=== PATIENT | male | born 1985 | race Caucasian/White ===

== ENCOUNTER 2017-07-19 21:48 | Emergency (ER) ==
[2017-07-19 21:50] VITALS: BP 138/82; TEMP 98; BMI 34.9
--- NOTE | 2017-07-19 22:23 | DI ---
EXAM: right ankle, three views, 07/19/2017 HISTORY: Ankle injury COMPARISON: None. FINDINGS / IMPRESSION: The visualized osseous structures appear intact. Anatomic alignment appears within normal limits. There is no evidence of fracture or dislocation. No acute osseous abnormality.
--- NOTE | 2017-07-19 22:23 | DI ---
EXAM: Right foot, three views, 07/19/2017 HISTORY: Foot injury COMPARISON: None. FINDINGS / IMPRESSION: The visualized osseous structures appear intact. Anatomic alignment appears within normal limits. There is no evidence of fracture or dislocation. No acute osseous abnormality.
[2017-07-19] MEDS ORDERED: TORADOL IM STA (22:37)
--- NOTE | 2017-07-19 22:41 | ED.PDOC ---
General ED Provider: Dr. PERFECTO PEREIRA-ER Chief Complaint: Ankle Pain/Injury Stated Complaint: i slipped on step=--i hurt my ankle Time Seen by Physician: 22:39 Mode of Arrival: Walk-In Information Source: Patient Exam Limitations: No limitations Nursing and Triage Documentation Reviewed and Agree: Yes Reviewed sepsis parameters & appropriate labs ordered?: Yes System Inflammatory Response Syndrome: Not Applicable Sepsis Protocol: For patient's 13 years and over: Temp is 96.8 and below OR 101 and greater Pulse >90 BPM Resp >20/minute Acutely Altered Mental Status Are patient's symptoms suggestive of a new infection, such as: -Pneumonia -Skin, Soft Tissue -Endocarditis -UTI -Bone, Joint Infection -Implantable Device -Acute Abdominal Infection -Wound Infection -Meningitis -Blood Stream Catheter Infection -Unknown Musculoskeletal Complaint Exam - Ankle/Foot Complaint/Exam Location of Injury: Reports: Right, Ankle Mechanism of Injury: Reports: Trauma Onset/Duration: one hour Symptoms Are: Reports: Still present Onset of Pain: Reports: Immediate Initial Severity: Mild Current Severity: Mild Location: Reports: Discrete (right ankle) Character: Reports: Dull, Aching Aggravating: Reports: Movement Able to Bear Weight: No Associated Signs and Symptoms: Reports: Swelling Related Surgical History: Reports: None Lower Extremity Findings: Present: Swelling Achilles Tendon Abnormality: No Tenderness: Present: Medial malleolus, Lateral malleolus Limited Range of Motion: Present: Inversion, Eversion Differential Diagnosis: Sprain Review of Systems - Review Of Systems Constitutional: Reports: No symptoms Eyes: Reports: No symptoms Ears, Nose, Mouth, Throat: Reports: No symptoms Respiratory: Reports: No symptoms Cardiac: Reports: No symptoms GI: Reports: No symptoms : Reports: No symptoms Musculoskeletal: Reports: Joint pain Skin: Reports: No symptoms Neurological: Reports: No symptoms Endocrine: Reports: No symptoms Hematologic/Lymphatic: Reports: No symptoms All Other Systems: Reviewed and Negative Past Medical History - Past Medical History Previously Healthy: Yes Endocrine: Reports: Unknown Cardiovascular: Reports: Unknown Respiratory: Reports: Unknown Hematological: Reports: Unknown Gastrointestinal: Reports: Unknown Genitourinary: Reports: Unknown Neuro/Psych: Reports: Unknown Musculoskeletal: Reports: Unknown Cancer: Reports: Unknown - Surgical History General Surgical History: Reports: Unknown - Family History Family History: Reports: Unknown - Social History Smoking Status: Current every day smoker, Heavy tobacco smoker Hx Substance Use: No Alcohol Screening: Occasionally - Immunizations Tetanus Shot up to Date: Yes Physical Exam - Physical Exam Appearance: Well-appearing, No pain distress, Well-nourished Pain Distress: Moderate Eyes: BRIAN, EOMI, Conjunctiva clear ENT: Ears normal, Nose normal, Oropharynx normal Neck: Supple Respiratory: Airway patent, Breath sounds clear, Breath sounds equal, Respirations nonlabored Cardiovascular: RRR, Pulses normal, No rub, No murmur GI/: Soft Musculoskeletal: Limited ROM Skin: Warm Neurological: Sensation intact, Motor intact, Reflexes intact, Cranial nerves intact, Alert, Oriented Psychiatric: Affect appropriate, Mood appropriate Interpretation - Radiology Interpretation Radiology Interpretation By: Radiologist Radiology Results: Negative Critical Care Note - Critical Care Note Total Time (mins): 0 Course - Course Orders, Labs, Meds: Orders Category Date Time Status CRUTCHES [ED CRUTCHES] .ONCE EMERGENCY 07/19/17 22:38 Active ED ALEX WRAP .ONCE EMERGENCY 07/19/17 22:38 Active ED SPLINT APPLICATION .ONCE EMERGENCY 07/19/17 22:38 Active Ketorolac Tromethamine [Toradol] MEDS 07/19/17 22:37 Stat 60 mg IM ONCE STA ANKLE, RIGHT MIN 3 VIEWS Stat RADS 07/19/17 22:00 Completed FOOT, RIGHT 3 VIEWS Stat RADS 07/19/17 22:02 Completed Vital Signs: Temp Pulse Resp BP Pulse Ox 07/19/17 21:48 98 F 80 16 138/82 96 Departure - Departure Time of Disposition: 22:41 Disposition: HOME SELF-CARE Discharge Problem: Ankle pain Instructions: Ankle Sprain (ED), Ankle Stirrup Splint (ED) Condition: Good Pt referred to PMD for follow-up: Yes IPMP verified?: No Additional Instructions: stay in splint and crutches--ultram 50mg 1-2 tabs q 6hrs prn pain #15---f/u with pcp Allergies/Adverse Reactions: Allergies No Known Allergies Allergy (Unverified 01/31/14 10:51) Home Medications: Ambulatory Orders 1 [No Reported Medications] 01/31/14 Disposition Discussed With: Patient, Family
== END 2017-07-19 23:05 | disposition home or self-care (01) ==
LOC: ED 21:48
DX: M25.571 Pain in right ankle and joints of right foot (principal); W10.9XXA Fall (on) (from) unspecified stairs and steps, initial encounter; F17.210 Nicotine dependence, cigarettes, uncomplicated
CPT/HCPCS: 96372; 99283

== ENCOUNTER 2017-08-01 03:03 | Emergency (ER) ==
[2017-08-01 03:04] VITALS: BMI 34.9
[2017-08-01 03:22] VITALS: BP 174/68; TEMP 96.4
[2017-08-01] MEDS ORDERED: LIDOCAINE HCL 1% SDV SUBCUT STA (03:24)
[2017-08-01] MEDS ORDERED: TENIVAC IM ONE (04:11)
--- NOTE | 2017-08-01 04:13 | ED.PDOC ---
General ED Provider: Dr. PERFECTO PEREIRA-ER Chief Complaint: Hand Laceration Stated Complaint: i punched a rear view mirror and cut my hand Time Seen by Physician: 03:15 Mode of Arrival: Walk-In Information Source: Patient Exam Limitations: No limitations Nursing and Triage Documentation Reviewed and Agree: Yes Reviewed sepsis parameters & appropriate labs ordered?: Yes System Inflammatory Response Syndrome: Not Applicable Sepsis Protocol: For patient's 13 years and over: Temp is 96.8 and below OR 101 and greater Pulse >90 BPM Resp >20/minute Acutely Altered Mental Status Are patient's symptoms suggestive of a new infection, such as: -Pneumonia -Skin, Soft Tissue -Endocarditis -UTI -Bone, Joint Infection -Implantable Device -Acute Abdominal Infection -Wound Infection -Meningitis -Blood Stream Catheter Infection -Unknown Skin Complaint Exam - Laceration/Abrasion/Hand Complaint/Exam Location of Injury: Right, Digit #3, Digit #5 Mechanism of Injury: Laceration, Blunt trauma Onset/Duration: one hour Symptoms Are: Still present Initial Severity: Mild Current Severity: Moderate Aggravating: Movement Alleviating: Compression Associated Signs and Symptoms: Denies: Fever, Chills, Erythema, Numbness, Tingling Related History: Reports: Right hand dominant Differential Diagnoses: Avulsion, Open Fracture, Laceration Review of Systems - Review Of Systems Constitutional: Reports: No symptoms Eyes: Reports: No symptoms Ears, Nose, Mouth, Throat: Reports: No symptoms Respiratory: Reports: No symptoms Cardiac: Reports: No symptoms GI: Reports: No symptoms : Reports: No symptoms Musculoskeletal: Reports: Joint pain Skin: Reports: No symptoms Neurological: Reports: No symptoms Endocrine: Reports: No symptoms Hematologic/Lymphatic: Reports: No symptoms All Other Systems: Reviewed and Negative Past Medical History - Past Medical History Previously Healthy: Yes Endocrine: Reports: Unknown Cardiovascular: Reports: Unknown Respiratory: Reports: Unknown Hematological: Reports: Unknown Gastrointestinal: Reports: Unknown Genitourinary: Reports: Unknown Neuro/Psych: Reports: Unknown Musculoskeletal: Reports: Unknown Cancer: Reports: Unknown - Surgical History General Surgical History: Reports: Unknown - Family History Family History: Reports: Unknown - Social History Smoking Status: Current every day smoker, Heavy tobacco smoker Hx Substance Use: No Alcohol Screening: Occasionally Lives: With family - Immunizations Tetanus Shot up to Date: (DOESNT KNOW FOR SURE) Physical Exam - Physical Exam Appearance: Well-appearing, No pain distress, Well-nourished Pain Distress: Mild Eyes: BRIAN ENT: Ears normal, Nose normal, Oropharynx normal Neck: Supple Respiratory: Airway patent, Breath sounds clear, Breath sounds equal, Respirations nonlabored Cardiovascular: RRR, Pulses normal, No rub, No murmur GI/: Soft, Nontender, No masses, Bowel sounds normal, No Organomegaly Musculoskeletal: Limited ROM Skin: Warm, Dry, Normal color Neurological: Sensation intact, Motor intact, Reflexes intact, Cranial nerves intact, Alert, Oriented Psychiatric: Affect appropriate, Mood appropriate Interpretation - Radiology Interpretation Radiology Interpretation By: Radiologist Radiology Results: Negative Procedures - Laceration/Wound Repair No standard instances Wound Description: Linear, Flap Wound Length (cm): 1. 1cm 2. 2cm Wound Explored: Clean Wound Irrigated: Yes Wound Prep: Saline, Hibiclens Anesthesia: Lidocaine Wound Repaired With: Sutures Suture Size and Type: 4.0 nylon Number of Sutures: 0 Layer Closure?: No Sterile Dressing Applied?: Yes Splint Applied?: No Sling Applied?: No Progress: he has two lacerations--1cm base of right fifth finger and 2cm flap laceration near mcp joint middle finger--smaller closed with 2 sutures and larger closed with 5 sutures--both 4.0 prolene Re-Evaluation - Re-Evaluation Time of Re-Evaluation: 05:41 Status: Improved Vital Signs Stable: Yes Pain Level: 0 Appearance: NAD Lungs: Clear Skin: Warm and Dry Neuro: Alert and Oriented X3 CV: RRR Critical Care Note - Critical Care Note Total Time (mins): 0 Course - Course Orders, Labs, Meds: Orders Category Date Time Status Lidocaine HCl/Pf [Lidocaine HCl 1% Sdv] MEDS 08/01/17 03:24 Discontinued 5 ml SUBCUT ONCE STA Tetanus and Diphtheria Tox/Pf [Tenivac] MEDS 08/01/17 04:11 Discontinued 0.5 ml IM .ONCE ONE HAND, RIGHT 3 VIEWS Stat RADS 08/01/17 03:56 Completed Medications Discontinued Medications Generic Name Dose Route Start Last Admin Trade Name Freq PRN Reason Stop Dose Admin Lidocaine HCl 5 ml 08/01/17 03:24 08/01/17 03:45 Lidocaine Hcl 1% Sdv SUBCUT 08/01/17 03:25 5 ml ONCE STA Administration Tetanus/Diphtheria Toxoids Adsorbed 0.5 ml 08/01/17 04:11 08/01/17 04:27 Tenivac IM 08/01/17 04:12 0.5 ml .ONCE ONE Administration Vital Signs: Temp Pulse Resp BP Pulse Ox 08/01/17 03:04 96.4 F L 92 H 20 174/68 H 98 Departure - Departure Time of Disposition: 05:41 Disposition: HOME SELF-CARE Discharge Problem: Laceration of hand Instructions: Diphtheria/Tetanus Vaccine (By injection) Condition: Good Pt referred to PMD for follow-up: No IPMP verified?: No Additional Instructions: norco 5mg q 4hrs prn pain #10--keflex 500mg bid x 7 days----see me thursday night to recheck wound--sutures out in 7days Allergies/Adverse Reactions: Allergies No Known Allergies Allergy (Verified 08/01/17 03:19) Home Medications: Ambulatory Orders 1 [No Reported Medications] 01/31/14 Disposition Discussed With: Patient, Family
--- NOTE | 2017-08-01 05:32 | DI ---
EXAM: right hand, three views, 08/01/2017 HISTORY: Hand trauma COMPARISON: None. FINDINGS / IMPRESSION: The visualized osseous structures appear intact. Anatomic alignment appears within normal limits. There is no evidence of fracture or dislocation. No acute osseous abnormality.
== END 2017-08-01 05:54 | disposition home or self-care (01) ==
LOC: ED 03:03
DX: S61.411A Laceration without foreign body of right hand, initial encounter (principal); W22.8XXA Striking against or struck by other objects, initial encounter; F17.210 Nicotine dependence, cigarettes, uncomplicated
CPT/HCPCS: 90471; 90714; 99283